=== PATIENT | male | born 1955 | race Two or more races ===

== ENCOUNTER 2024-10-25 05:00 | Inpatient (IN) | payer OTHER ==
[2024-10-16 07:43] LABS: BASO % 0.9 % (0.1-1.2); EOS # 0.18 (0.04-0.54); EOS % 1.8 % (0.7-7.0); LYMPH # 2.51 (1.18-3.74); LYMPH % 24.5 % (19.3-53.1); MEAN PLATELET VOLUME 9.00 fl (9.4-12.4); MONO # 1.28 (0.24-0.82); NEUT # 6.04 (1.56-6.13); NEUT % 58.9 % (34.0-71.1); RED CELL DISTRIBUTION WIDTH 12.8 % (11.6-14.4)
[2024-10-16 07:49] LABS: MONO % 12.5 % (4.7-12.5)
[2024-10-16 08:09] VITALS: BP 143/79
[2024-10-16 08:11] LABS: INR 1.2
[2024-10-16 08:31] LABS: COVID-19 AG NEGATIVE (NEGATIVE)
[2024-10-16 08:32] LABS: URINE APPEARANCE Clear; URINE BILIRRUBIN Negative (NEGATIVE); URINE BLOOD Moderate; URINE COLOR Yellow; URINE GLUCOSE Negative (NEGATIVE); URINE KETONE Negative (NEGATIVE); URINE LEUKOCYTE Negative; URINE NITRATE Negative; URINE PROTEIN Negative (NEGATIVE); URINE UROBILINOGEN 0.2 E.U./dl
[2024-10-16 08:34] LABS: URINE BACTERIA 7.3 uL (0.0-1933); URINE RBC 122.1 uL (0.0-20.8); URINE WBC 2.6 uL (0.0-23.2)
[2024-10-16 08:48] LABS: BUN CREA RATIO 8.0 (7.0-25.0); CREATININE SERUM 0.92 mg/dL (0.70-1.30); GFR 81.81; GLUCOSE FASTING 107.0 mg/dL (65-100); OSMOLALITY SERUM 265.0 MOSM/KG (275-295)
[2024-10-16 09:04] LABS: URINE CAST 0.14 uL (0.0-1.40); URINE EPITHELIAL CELLS 0.4 uL (0.0-38.8)
[2024-10-16 09:56] LABS: RH POSITIVE
[~2024-10-25] VITALS: Ht 167.6 cm; Wt 104.3 kg
[~2024-10-25 05:00] MED LIST: ECOTRIN81 MG PO; METFORMIN HCL500 M3; NEURONTIN300 MG; NORVASC2.5 M1; SIMVASTATIN5 MG; UROXATRAL10 MG
[2024-10-25] MEDS ORDERED: ENOXAPARIN SODIUM 40 MG/0.4 ML SYRINGE SUBCUTANEO ONE (09:00)
[2024-10-25] MEDS ORDERED: HEMOSTATIC MATRIX 1 KIT KIT TOP ONE (09:00)
[2024-10-25] MEDS ORDERED: SURGIFLO APPLICATOR 1 EACH APPL TOP ONE (09:00)
[2024-10-25] MEDS ORDERED: BUPIVACAINE HCL 30 ML VIAL IJ ONE (09:00)
[2024-10-25] MEDS ORDERED: CEFAZOLIN SODIUM 1,000 MG VIAL IV ONE (09:00)
[2024-10-25] MEDS ORDERED: ONDANSETRON HCL 2 MG/ML VIAL IV PRN (11:00)
[2024-10-25] MEDS ORDERED: MORPHINE SULFATE 4 MG/ML VIAL IV PRN (11:00)
[2024-10-25] MEDS ORDERED: RINGERS SOLUTION,LACTATED 1,000 ML IV SCH (11:00)
[2024-10-25] MEDS ORDERED: SUGAMMADEX SODIUM 200 MG/2 ML VIAL IV ONE (12:15)
[2024-10-25] MEDS ORDERED: DEXTROSE 50 % IN WATER 0.5 G/ML VIAL IV PRN (15:00)
[2024-10-25] MEDS ORDERED: INSULIN LISPRO 1,000 UNIT/10 ML UNITS SUBCUTANEO PRN (15:00)
[2024-10-25] MEDS ORDERED: POLYETHYLENE GLYCOL 3350 17 GM BLIST.PACK PO SCH (17:00)
[2024-10-25] MEDS ORDERED: GABAPENTIN 300 MG CAPSULE PO SCH (17:00)
[2024-10-25 17:02] VITALS: BP 163/78; O2SAT 93
[2024-10-25] MEDS ORDERED: CEFAZOLIN SODIUM 1,000 MG VIAL IV SCH (21:00)
[2024-10-25] MEDS ORDERED: FAMOTIDINE/PF 20 MG/2 ML VIAL IV SCH (21:00)
[2024-10-26 02:26] VITALS: BP 137/79; O2SAT 92
[2024-10-26 07:27] LABS: BASO % 0.4 % (0.1-1.2); EOS # 0.01 (0.04-0.54); EOS % 0.1 % (0.7-7.0); LYMPH # 1.02 (1.18-3.74); LYMPH % 9.1 % (19.3-53.1); MEAN PLATELET VOLUME 9.80 fl (9.4-12.4); MONO # 1.08 (0.24-0.82); MONO % 9.6 % (4.7-12.5); NEUT # 9.06 (1.56-6.13); NEUT % 80.3 % (34.0-71.1); RED CELL DISTRIBUTION WIDTH 12.9 % (11.6-14.4)
[2024-10-26 08:04] LABS: BUN CREA RATIO 9.0 (7.0-25.0); CREATININE SERUM 0.81 mg/dL (0.70-1.30); GFR 94.76; GLUCOSE FASTING 119.0 mg/dL (65-100); OSMOLALITY SERUM 271.0 MOSM/KG (275-295)
[2024-10-26] MEDS ORDERED: AMLODIPINE BESYLATE 5 MG TABLET PO SCH (09:00)
[2024-10-26] MEDS ORDERED: ENOXAPARIN SODIUM 40 MG/0.4 ML SYRINGE SUBCUTANEO SCH (09:00)
[2024-10-26 09:02] VITALS: BP 148/80; O2SAT 98
== END 2024-10-26 13:51 | disposition home or self-care (01) | DRG 708 ==
LOC: CIR.AMB 05:00 → SURG 14:05
PROVIDERS: ADMIT Urology; ATTEND Urology
PROC: 8E0W4CZ Robotic Assisted Procedure of Trunk Region, Percutaneous Endoscopic Approach (ICD-10-PCS; 2024-10-25)
PROC: 0VT04ZZ Resection of Prostate, Percutaneous Endoscopic Approach (ICD-10-PCS; principal; 2024-10-25 12:30)
DX: C61 Malignant neoplasm of prostate (principal)
CPT/HCPCS: 55866; S2900

== ENCOUNTER 2024-11-04 17:16 | Inpatient (IN) | payer OTHER ==
[~2024-11-04] VITALS: Ht 167.6 cm; Wt 103.4 kg
--- NOTE | 2024-11-04 17:41 | NUR ---
PACIENTE ALERTA Y ORIENTADO X3 QUIEN REFIERE VENIR MALESTAR EN EL PECHO. CADA VEZ QUE RESPIRA SIENTE MOLESTIA. SE REALIZA EKG SE PRESENTA DR. VALENZUELA
[2024-11-04] MEDS ORDERED: KETOROLAC TROMETHAMINE 30 MG VIAL IM STA (17:45)
[2024-11-04] MEDS ORDERED: KETOROLAC TROMETHAMINE 30 MG VIAL ONE (17:49)
--- NOTE | 2024-11-04 17:50 | NUR ---
SE EDUCA A PTE SOBRE [place] MED[facility], SE ASHLEY MUESTRAS DE LABORATORIO UTILIZANDO MEDIDAS ASEPTICAS. SE ADMINISTRA MEDICAMENTO JEAN ORDEN MEDICA. SE NOTIFICA RX PENDIENTE A REALIZAR.
[2024-11-04 18:04] LABS: BASO % 0.6 % (0.1-1.2); EOS # 0.08 (0.04-0.54); EOS % 0.9 % (0.7-7.0); LYMPH # 1.94 (1.18-3.74); LYMPH % 21.8 % (19.3-53.1); MEAN PLATELET VOLUME 8.60 fl (9.4-12.4); MONO # 1.00 (0.24-0.82); MONO % 11.2 % (4.7-12.5); NEUT # 5.65 (1.56-6.13); NEUT % 63.6 % (34.0-71.1); RED CELL DISTRIBUTION WIDTH 12.3 % (11.6-14.4)
[2024-11-04 18:33] LABS: BUN CREA RATIO 6.0 (7.0-25.0); CREATININE SERUM 0.83 mg/dL (0.70-1.30); GFR 92.13; GLUCOSE FASTING 125.0 mg/dL (65-100); OSMOLALITY SERUM 247.0 MOSM/KG (275-295)
[2024-11-04] MEDS ORDERED: AMLODIPINE BESYLATE 5 MG TABLET PO SCH (20:04)
[2024-11-04] MEDS ORDERED: FAMOTIDINE/PF 20 MG in 0.9 % SODIUM CHLORIDE 8 ML IV PUSH SCH (20:05)
[2024-11-04] MEDS ORDERED: ONDANSETRON HCL 4 MG in 0.9 % SODIUM CHLORIDE 50 ML IV PRN (20:15)
[2024-11-04] MEDS ORDERED: DEXTROSE 50 % IN WATER 0.5 G/ML VIAL IV PRN (20:15)
[2024-11-04] MEDS ORDERED: INSULIN LISPRO 1,000 UNIT/10 ML UNITS SUBCUTANEO PRN (20:15)
[2024-11-04] MEDS ORDERED: ACETAMINOPHEN 500 MG GEL..CAP PO PRN (20:15)
[2024-11-04] MEDS ORDERED: 0.9 % SODIUM CHLORIDE 1,000 ML IV SCH (20:15)
[2024-11-05] MEDS ORDERED: FAMOTIDINE/PF 20 MG/2 ML VIAL ONE ×2 (00:05→08:02)
[2024-11-05 01:13] VITALS: BP 126/71; O2SAT 95
[2024-11-05 01:40] LABS: INR 1.24
[2024-11-05 08:47] VITALS: BP 149/75; O2SAT 97
[2024-11-05 09:03] LABS: URINE APPEARANCE Clear; URINE BILIRRUBIN Negative (NEGATIVE); URINE BLOOD Trace; URINE COLOR Yellow; URINE GLUCOSE Negative (NEGATIVE); URINE LEUKOCYTE Negative; URINE NITRATE Negative; URINE PROTEIN Trace (NEGATIVE); URINE UROBILINOGEN 1.0 E.U./dl
[2024-11-05 09:07] LABS: URINE BACTERIA 11.9 uL (0.0-1933); URINE RBC 20.8 uL (0.0-20.8); URINE WBC 2.8 uL (0.0-23.2)
[2024-11-05 09:19] LABS: URINE CAST 0.29 uL (0.0-1.40); URINE EPITHELIAL CELLS 1.3 uL (0.0-38.8); URINE KETONE 40 (NEGATIVE)
[2024-11-05] MEDS ORDERED: ACETAMINOPHEN 500 MG GEL..CAP PO ONE (12:52)
[2024-11-05 16:41] VITALS: BP 160/82; O2SAT 96
[2024-11-05] MEDS ORDERED: SIMVASTATIN 20 MG TABLET PO SCH (17:00)
[2024-11-05] MEDS ORDERED: GABAPENTIN 800 MG TABLET PO SCH (17:00)
[2024-11-06 06:45] VITALS: BP 134/72; O2SAT 98
[2024-11-06 07:49] LABS: ALT/SGPT 45.0 U/L (12-78); AST/SGOT 24.0 U/L (15-37); BILIRUBIN TOTAL 0.73 mg/dL (0.3-1.2); BUN CREA RATIO 8.0 (7.0-25.0); CREATININE SERUM 0.59 mg/dL (0.70-1.30); GFR 136.6; GLOBULINA 3.3 G/DL (2.4-3.5); GLUCOSE FASTING 97.0 mg/dL (65-100); OSMOLALITY SERUM 252.0 MOSM/KG (275-295); TSH 4.0 uIU/mL (0.358-3.74)
[2024-11-06 08:16] VITALS: BP 149/78; O2SAT 98
[2024-11-06] MEDS ORDERED: MAGNESIUM SULFATE IN WATER 50 ML IV NR (10:15)
[2024-11-06] MEDS ORDERED: ACETAMINOPHEN 500 MG GEL..CAP PO SCH (17:00)
[2024-11-06 19:15] VITALS: BP 127/64
[2024-11-07 03:30] VITALS: BP 146/82; O2SAT 95
[2024-11-07 07:03] LABS: BUN CREA RATIO 9.0 (7.0-25.0); CREATININE SERUM 0.64 mg/dL (0.70-1.30); GFR 124.36; GLUCOSE FASTING 102.0 mg/dL (65-100); OSMOLALITY SERUM 257.0 MOSM/KG (275-295)
[2024-11-07] MEDS ORDERED: FAMOTIDINE/PF 20 MG/2 ML VIAL ONE (08:03)
[2024-11-07 09:18] VITALS: BP 126/75; O2SAT 97
== END 2024-11-07 12:49 | disposition home or self-care (01) | DRG 641 ==
LOC: ER 17:18 → SEC-K 20:30 → MEDI 20:30 → SEC-K 11-05 02:11 → MEDI 11-05 18:12 → SEC-K 11-06 04:01 → MEDJ 11-06 12:22
PROVIDERS: General Practice; Internal Medicine Nephrology; ADMIT Internal Medicine; ATTEND Internal Medicine
DX: E87.1 Hypo-osmolality and hyponatremia (principal); E87.8 Other disorders of electrolyte and fluid balance, not elsewhere classified; E78.5 Hyperlipidemia, unspecified; E11.9 Type 2 diabetes mellitus without complications; Z79.4 Long term (current) use of insulin